=== PATIENT | female | born 1985 | race Caucasian/White ===

== ENCOUNTER 2016-09-18 22:47 | Outpatient (CLI) | payer MEDICAID ==
[~2016-09-18] VITALS: Ht 157.5 cm; Wt 69.5 kg
[~2016-09-18 22:47] MED LIST: PRENATAL1 TA1 PO; VITAMIN D 400400 IU PO
[2016-09-18 23:30] VITALS: BP 118/69; PULSE 121
[2016-09-19 00:21] LABS: PH 5 (5-8); SQUAMOUS EPITHELIAL 0-2 /hpf; URINE APPEARANCE Hazy; URINE BACTERIA None Seen /hpf; URINE BILIRUBIN Negative (NEGATIVE); URINE BLOOD Negative (NEGATIVE); URINE COLOR Amber; URINE GLUCOSE 1+ (NEGATIVE); URINE KETONE 2+ (NEGATIVE); URINE RBC 0-2 /hpf; URINE UROBILINOGEN Negative (NEGATIVE); URINE WBC 0-2 /hpf
== END 2016-09-19 00:58 | disposition home or self-care (01) ==
LOC: LDRO 22:47
PROVIDERS: Obstetrics & Gynecology
DX: O47.03 False labor before 37 completed weeks of gestation, third trimester (principal); O26.23 Pregnancy care for patient with recurrent pregnancy loss, third trimester; Z3A.33 33 weeks gestation of pregnancy

== ENCOUNTER 2016-10-19 18:09 | Outpatient (CLI) | payer MEDICAID ==
[~2016-10-19] VITALS: Ht 157.5 cm; Wt 72.7 kg
[2016-10-19 18:34] VITALS: BP 127/70; PULSE 85; TEMP 98.5
[2016-10-19] MEDS ORDERED: LEXAPRO 10MG10 MG PO (18:41)
== END 2016-10-19 18:45 | disposition home or self-care (01) ==
LOC: LDRO 18:09
DX: O26.893 Other specified pregnancy related conditions, third trimester (principal); O76 Abnormality in fetal heart rate and rhythm complicating labor and delivery; Z3A.38 38 weeks gestation of pregnancy; Z87.891 Personal history of nicotine dependence

== ENCOUNTER → 2016-10-26 | Outpatient (CLI) | payer MEDICAID ==
[~2016-10-26] MED LIST changes: +LEXAPRO 10MG10 MG PO
== END ==
LOC: OLC 11:31
DX: Z39.1 Encounter for care and examination of lactating mother (principal); Z71.89 Other specified counseling